=== PATIENT | female | born 1980 | race Caucasian/White ===

== ENCOUNTER 2019-03-01 06:24 | Inpatient (IN) | payer OTHER ==
[2019-03-01] VITALS (62 sets, daily range): BP systolic 101–143; BP diastolic 54–90; PULSE 71–107; TEMP 97.6–98.4
[~2019-03-01] VITALS: Ht 162.6 cm; Wt 92.7 kg
[~2019-03-01 06:24] MED LIST: ASPIRIN 81M81 MG/TA2 PO; CALCIUM 600-D 61 TAB PO; CLARITIN 1010 MG/TAB PO; FOLIC ACID 11 MG/TA1 PO; FOLIC ACID800 MCG PO; IBU600 MG PO; PRENATAL1 TA1 PO
--- NOTE | 2019-03-01 07:10 | NUR ---
Presents to labor and delivery for induction of labor. Assessment done, questions offered and answered. Spouse at bedside.
--- NOTE | 2019-03-01 07:45 | NUR ---
Pitocin 2 roque units iv started per policy and as ordered.
[2019-03-01 08:54] LABS: HEMATOCRIT 37.7 % (37.0-47.0); HEMOGLOBIN 12.9 g/dl (12.5-16.0); MEAN CELL VOLUME 95 fl (80.0-100.0); MEAN CORPUSCULAR HEMOGLOBIN 32 pg (27.0-31.0); MEAN CORPUSCULAR HGB CONC 34 g/dl (33.0-37.0); MEAN PLATELET VOLUME 10.9 fl (7.4-10.4); PLATELET COUNT 187 K/mm3 (130-400); RED BLOOD COUNT 3.99 M/mm3 (4.10-5.30); REDCELL DISTRIBUTION WIDTH-CV 13.5 % (11.5-14.5)
--- NOTE | 2019-03-01 09:00 | NUR ---
Dr. Da Silva here, arom done, small amount of clear fluid with some bloody show noted.
[2019-03-01 09:38] LABS: BAND 2 % (0-10); EOSINOPHIL 1 % (0-4); LYMPHOCYTE 5 % (20.0-51.0); NEUTROPHILS 80 % (42.0-75.2)
--- NOTE | 2019-03-01 10:00 | NUR ---
Continues to sit up on birthing ball. States feeling some contractions.
--- NOTE | 2019-03-01 10:30 | NUR ---
Continues to sit on birthing ball. Contractions are hard to picker tender by sitting on birthing ball. States does feel some contractions.
--- NOTE | 2019-03-01 11:15 | NUR ---
Continues to sit up on birthing ball. Visits with family members.
--- NOTE | 2019-03-01 11:50 | NUR ---
Pen g 2.5 million units iv given as ordered and per protocol. Denies any needs at this time.
--- NOTE | 2019-03-01 12:15 | NUR ---
Continues to sit on birthing ball visiting with family.
--- NOTE | 2019-03-01 12:45 | NUR ---
Back to bed, states more fluid coming out. Lies in bed, more fluid coming out, clear fluid. Dr. Da Silva told that more fluid noted now. 1253 Dr. Da Silva here, vag check done. Reports dilated to two, eighty percent effaced. Pad changed.
--- NOTE | 2019-03-01 14:00 | NUR ---
Anesthesia notified of patient request for epidural.
--- NOTE | 2019-03-01 14:30 | NUR ---
Sits up for epidural. Anesthesia visits with patient. 1437 Space obtained and single shot given by anesthesia Tobias Beverly c.r.n.a. 1438 Catheter placed by anesthesia. 1445 Lies down after epidural.
--- NOTE | 2019-03-01 14:45 | NUR ---
Rests in bed, alert. States still feeling some pain. Anesthesia here. 1450 Blood pressure 98/50, ephedrine 10 mg iv given as ordered. States feeling nauseated. Fan on, head of bed down, cool wash cloth on forehead.
--- NOTE | 2019-03-01 15:00 | NUR ---
1506 Ephedrine 10 mg iv given for blood pressure of 104/57.
--- NOTE | 2019-03-01 15:45 | NUR ---
Continues to rest with eyes closed. Resperations even and unlabored.
--- NOTE | 2019-03-01 16:15 | NUR ---
1628 Pen g 2.5 million units iv given as ordered and per protocol. Repositioned to right side. Denies any discomfort or pain at this time.
--- NOTE | 2019-03-01 17:15 | NUR ---
Dr. Da Silva here, visits with family. Vag exam done, dilated to eight. Pad changed, repositioned.
--- NOTE | 2019-03-01 18:15 | NUR ---
Report received from Edmundo MELENDEZ. Plan of care explained to pt and family who verbalize understanding. Pt states she is starting to feel contractions a little more but states she will push her button when needed. Educated pt to call out when feeling more pressure. 1828: Recurrent variable decels noted with contractions noted down to 60bpm. Pt denies pressure. SVE 9. Pt repositioned to high ffowlers and plan of care explained. 1901: at nurses station and reviews FHR strip. Update given. See physican notification. 1904: Pt continues to feel pain with contraction despite pushing epidural button a couple of times. Lopez notified for additional dosage. 1947: SVE C/+1. notified and updated on pts status. Plan of care explained to pt and family who verbalize understanding. Garcia removed. 1952: Pt begins pushing with contractions with this RN with family at bedside. [id number]: Emesis noted and pt sitting up. Difficulty tracing FHR due to maternal position. 1958: Zofran administered per orders 2002: Pt resumes pushing with this RN. 2049: requested for delivery. 2051: at bedside and pt assisted into footplates for delivery. 2054: Spontaneous vaginal delivery of viable male by . Pitocin stopped per protocol. Nares and mouth bulb suctioned by . Infant to mothers chest where dried and stimulated by Nursery RN. Cord clamped X2 and cut by FOB. Care of infant assumed by Sandy MELENDEZ. 2101: Spontaneous delivery of intact placenta by . Pitocin resummed at 333mus/hr per protocol. Fundal message preformed per provider. First degree laceration repaired by . Pericare provided and pads changed. Pt repositioned in bed and ice pack applied. Plan of care and safety precautions explained to pt and family who verbalize understanding. Call light within reach.
[2019-03-02 02:45] VITALS: BP 110/69; PULSE 65; TEMP 98.3
[2019-03-02 07:57] VITALS: BP 109/66; PULSE 67; TEMP 97.7
[2019-03-02] MEDS ORDERED: IBU600 MG PO (08:51)
--- NOTE | 2019-03-02 10:04 | NUR ---
Initial visit attempt; Patient indisposed, Animal Care Assistant left card of congratulations for the of her son and information regarding the availability of spiritual care at our hospital.
[2019-03-02 16:00] VITALS: BP 116/67; PULSE 72; TEMP 98.1
[2019-03-02 20:30] VITALS: BP 121/70; PULSE 79; TEMP 98.6
[2019-03-03 07:20] VITALS: BP 120/73; PULSE 85; TEMP 97.6
[2019-03-03 15:43] VITALS: BP 125/76; PULSE 79; TEMP 98.2
== END 2019-03-03 16:30 | disposition home or self-care (01) | DRG 807 ==
LOC: LDR 06:24 → OB 07:03
PROVIDERS: ADMIT Obstetrics & Gynecology
PROC: 10E0XZZ Delivery of Products of Conception, External Approach (ICD-10-PCS; principal; 2019-03-01)
PROC: 10907ZC Drainage of Amniotic Fluid, Therapeutic from Products of Conception, Via Natural or Artificial Opening (ICD-10-PCS; 2019-03-01)
PROC: 0HQ9XZZ Repair Perineum Skin, External Approach (ICD-10-PCS; 2019-03-01)
PROC: 3E033VJ Introduction of Other Hormone into Peripheral Vein, Percutaneous Approach (ICD-10-PCS; 2019-03-01)
DX: O99.284 Endocrine, nutritional and metabolic diseases complicating childbirth (principal); Z37.0 Single live birth; O70.0 First degree perineal laceration during delivery; O69.1XX0 Labor and delivery complicated by cord around neck, with compression, not applicable or unspecified; Z3A.39 39 weeks gestation of pregnancy; Z79.82 Long term (current) use of aspirin
CPT/HCPCS: J2405; J2540; J2590; J2795; J7120

== ENCOUNTER → 2021-08-08 | Outpatient (CLI) | payer OTHER | LOC: MC.RAD 07:00 | DX: Z12.31 Encounter for screening mammogram for malignant neoplasm of breast (principal) ==